=== PATIENT | female | born 1970 | race Caucasian/White ===

== ENCOUNTER 2019-03-05 05:00 | Day surgery (SDC) | payer OTHER ==
[~2019-03-05 05:00] MED LIST: TRANXENE T-TAB7.5 MG PO; ZOCOR20 MG PO; ZYRTEC10 MG PO
[2019-03-05] MEDS ORDERED: PERCOCET 5-3251 EACH PO (08:48)
[2019-03-05] MEDS ORDERED: NABUMETONE750 MG PO (08:49)
== END 2019-03-05 12:50 | disposition home or self-care (01) ==
LOC: CIR.AMB 05:00
DX: M75.121 Complete rotator cuff tear or rupture of right shoulder, not specified as traumatic (principal); M19.011 Primary osteoarthritis, right shoulder; M75.41 Impingement syndrome of right shoulder

== ENCOUNTER → 2019-05-23 | Outpatient (CLI) | payer OTHER ==
[~2019-05-23] MED LIST changes: +NABUMETONE750 MG PO; +PERCOCET 5-3251 EACH PO
== END | disposition home or self-care (01) ==
LOC: SONOGRAMA 14:49 → MAMO-SONO 15:15
DX: M25.511 Pain in right shoulder (principal)